=== PATIENT | female | born 1965 | race Caucasian/White ===

== ENCOUNTER 2018-05-12 06:57 | Emergency (ER) | payer MEDICARE, MEDICAID ==
[2018-05-12 07:16] VITALS: RESP 20
[2018-05-12 07:36] LABS: HEMATOCRIT 41 % (35-47); HEMOGLOBIN 13.1 gm/dl (12.0-15.5); MEAN CORPUSCULAR HGB CONC 32.3 gm/dl (32.0-36.0)
[2018-05-12 07:41] LABS: MEAN CORPUSCULAR VOLUME 102 fL (81-99)
[2018-05-12 07:44] VITALS: O2SAT 100
[2018-05-12 07:44] LABS: CARBON DIOXIDE 30.2 mEq/L (21-32); CREATININE 0.84 mg/dl (0.60-1.00); POTASSIUM 3.8 mMol/L (3.5-5.1)
[2018-05-12 07:54] LABS: BAND NEUTROPHILS % (MANUAL) 4 %; BASOPHILS % (MANUAL) 1 % (0-3); EOSINOPHILS % (MANUAL) 0 % (0-9); LYMPHOCYTES % (MANUAL) 25 % (10-50); MONOCYTES % (MANUAL) 9 % (0-12); NEUTROPHILS % (MANUAL) 61 % (37-80)
[2018-05-12 07:55] LABS: ANISOCYTOSIS SLIGHT AMT
[2018-05-12 08:36] VITALS: BP 118/75; PULSE 85; TEMP 97
== END 2018-05-12 08:54 | disposition home or self-care (01) | DRG 312 ==
LOC: ED 06:57
DX: R55 Syncope and collapse (principal); S46.812A Strain of other muscles, fascia and tendons at shoulder and upper arm level, left arm, initial encounter
CPT/HCPCS: 36415; 73030; 80048; 84443; 85007; 85027; 93005; 99283; 99284